=== PATIENT | female | born 1955 | race Two or more races ===

== ENCOUNTER 2018-03-15 20:53 | Emergency (ER) | payer OTHER ==
[~2018-03-15] VITALS: Ht 167.6 cm; Wt 95.0 kg
[2018-03-15] MEDS ORDERED: OXYMETAZOLINE HCL NASAL SPRAY 15ML BOTHNSTRLS STA (21:27)
[2018-03-15] MEDS ORDERED: COCAINE 4% TOPICAL SOLN 4ML TOP ONE (21:30)
[2018-03-15] MEDS ORDERED: CEFAZOLIN 1000MG PREMIX 50 ML IV ONE (22:00)
[2018-03-15] MEDS ORDERED: MORPHINE SULFATE 4 MG/ML CPJ (NOT FOR IM USE) IV ONE (22:00)
[2018-03-15] MEDS ORDERED: ONDANSETRON HCL 4MG/2ML INJ IV ONE (22:00)
[2018-03-15 22:22] LABS: HEMATOCRIT. 37.2 % (36.0-48.0); HEMOGLOBIN. 11.9 g/dL (12.0-16.0); MEAN CORPUSCULAR HEMOGLOBIN 28.7 pg (28.0-32.0); MEAN CORPUSCULAR VOLUME 89.2 fL (81.0-99.0); MEAN PLATELET VOLUME 10.4 fl (7.4-10.4); PLATELET 230 x1000/uL (130-400); RED BLOOD CELL COUNT 4.16 mill/uL (4.2-5.4); RED CELL DISTRIBUTION WIDTH 14.2 % (11.6-14.6)
[2018-03-15 22:30] LABS: PARTIAL THROMBOPLASTIN TIME 26.1 sec (23.4-31.0); PROTHROMBIN TIME 9.6 sec (9.1-11.1)
[2018-03-15 22:50] LABS: PLATELET ESTIMATE NORMAL
[2018-03-15] MEDS ORDERED: ETOMIDATE 2MG/ML 10ML VIAL IV ONE (23:00)
[2018-03-15] MEDS ORDERED: MIDAZOLAM HCL 50 MG in DEXTROSE 5% WATER 40 ML IV ONE (23:00)
[2018-03-15] MEDS ORDERED: SUCCINYLCHOLINE CHLORIDE 200MG/10ML IV ONE (23:00)
[2018-03-15] MEDS ORDERED: MORPHINE SULFATE 10 MG/ML CPJ IV ONE (23:15)
[2018-03-15] MEDS ORDERED: HYDRALAZINE 20MG/ML VIAL IV ONE (23:30)
[2018-03-15 23:53] LABS: BG BASE EXCESS -1.9 mmol/L (-2.0-2.0); BG CARBOXYHEMOGLOBIN 0.3 % (0.5-1.5); BG DEOXYHEMOGLOBIN 0.6 % (0.0-5.0); BG FRACTION INSPIRED OXYGEN 100; BG HCO3 ACT 22.2 mmol/L (22.0-26.0); BG METHEMOGLOBIN 0.6 % (0.0-1.5); BG OXYGEN SATURATION 99.4 % (92.0-98.5); BG OXYHEMOGLOBIN 98.5 % (94.0-97.0); BG PCO2 35.4 mmHg (35.0-45.0); BG PH 7.415 (7.350-7.450); BG PO2 301.2 mmHg (75.0-100.0); BG SAMPLE SITE RIGHT RADIAL; BG TIDAL VOLUME(mL) 550 mL; BG TOTAL HEMOGLOBIN 10.4 g/dL (12.0-18.0); BG VENT MODE VENT - A/C; BG VENT RATE 14 set
[2018-03-16] MEDS ORDERED: MIDAZOLAM HCL 50 MG in DEXTROSE 5% WATER 40 ML IV ONE ×2 (00:30→01:00)
[2018-03-16 01:54] VITALS: BP 151/72
== END 2018-03-16 02:35 | disposition short-term general hospital (02) ==
LOC: ER 20:53
DX: J96.90 Respiratory failure, unspecified, unspecified whether with hypoxia or hypercapnia (principal); D62 Acute posthemorrhagic anemia; R04.0 Epistaxis; I11.9 Hypertensive heart disease without heart failure; D72.829 Elevated white blood cell count, unspecified; R73.9 Hyperglycemia, unspecified; Z95.5 Presence of coronary angioplasty implant and graft; Z98.890 Other specified postprocedural states; Z79.01 Long term (current) use of anticoagulants
CPT/HCPCS: 30901; 31500; 36415; 36556; 36600; 51702; 71045; 80048; 82375; 82805; 85025; 85610; 85730; 86850; 86900; 86901; 86920; 96365; 96366; 96368; 96375; 96376; 99291; J0330; J0360; J0690; J2250; J2270; J2405; J3490; P9016; J7060